=== PATIENT | female | born 1930 | race Caucasian/White ===

== ENCOUNTER 2017-10-02 10:45 | Emergency (ER) | payer MEDICARE ==
[~2017-10-02 10:45] MED LIST: ACE3 PO; AMI10 PO; AMIT-108 PO; ASPI81TA94 PO; ATOR40TA69 PO; CALC600T63 PO; HYDR12.558 PO; LOR5 PO; LOSA50TA72 PO; OMEP-218 PO; OMEP10CA38 PO; PRA20 PO; TRAM-420 PO; VIT1CAPS33 PO; ZOL5 PO; ZOLP-350 PO
[2017-10-02] MEDS ORDERED: MELO-205 PO (11:05)
[2017-10-02] MEDS ORDERED: HYDR-385 PO (11:05)
--- NOTE | 2017-10-02 11:58 | RADIOLOGY IMAGING REPORT ---
FACILITY: [facility] - [place] PATIENT NAME: Idalia Mera : 1930 MR: [id number] V: [id number] EXAM DATE: ORDERING PHYSICIAN: PAYAL STEPHENS TECHNOLOGIST: Location: [facility] Patient: Idalia Mera : 1930 Visit/Account:[id number] Date of Sevice: 10/02/2017 ANKLE 2 VIEW BILATERAL INDICATION: Bilateral ankle pain and swelling. COMPARISON: None available. FINDINGS: Right ankle: 3 views. Soft tissue swelling. No evidence of acute fracture, dislocation, or radiopaque foreign body. Mild osteopenia. Normal alignment. Mild midfoot osteoarthritis. Left ankle: 3 views. Soft tissue swelling. No evidence of acute fracture, dislocation, or radiopaque foreign body. Mild osteopenia. Normal joint spaces and alignment. IMPRESSION: 1. No acute osseous abnormality of the ankles. 2. Nonspecific bilateral soft tissue swelling. 3. 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 4. Mild osteopenia. Report Dictated By: Derek Hong MD at 10/02/2017 11:52 AM Report E-Signed By: Derek Hong MD at 10/02/2017 11:55 AM WSN:[id number]
--- NOTE | 2017-10-02 11:59 | ER Report ---
History and Physical Time Seen By MD: 11:00 Hx. of Stated Complaint: fall 09/20/17, evaluated in [place] and at [facility], today pt still has left ankle pain and pain medicine that has been prescribed is "upsetting my stomach", pt has been taking hydrocodone and meloxicam HPI/ROS CHIEF COMPLAINT: Bilateral ankle pain/injury HISTORY OF PRESENT ILLNESS: Patient is a 86-year-old female presents the ED with complaint of bilateral ankle injury that occurred 3 weeks ago. She states that she tripped and stumbled and fell onto her left side. She states that she has been seen at an emergency room and had some x-rays completed and also was seen at [facility] and had some MRIs of her back and also an x-ray of her left ankle completed. She does not believe they didn't x-ray of her right ankle. She states that she continues to have pain in both of her ankles but more so in her left. She has noted some swelling in her left ankle. She has been using a ankle brace and states that she has been elevating this when resting. REVIEW OF SYSTEMS: Constitutional: No fever, no chills. Cardiovascular: No chest pain, no palpitations. Respiratory: No cough, no shortness of breath. Musculoskeletal: See history of present illness. Skin: No rashes. Neurological: No headache. Allergies: Coded Allergies: tramadol (Verified Allergy, Intermediate, ITCHING, 10/02/17) Home Meds Reported Medications Meloxicam (MELOXICAM) 7.5 Mg Tablet, 15 MG PO QDAY 10/02/17 Hydrocodone Bit/Acetaminophen (HYDROCODON-ACETAMINOPHEN 5-325) 1 Each Tablet, 1 EACH PO Q6H, TAB 10/02/17 Vit C/Vit E/Lutein/Min/[place]-3 (OCUVITE SOFTGEL) 1 Each Capsule, 2 EACH PO, CAPSULE 06/05/14 Atorvastatin Calcium (ATORVASTATIN CALCIUM) 40 Mg Tablet, 1 TAB PO QDAY, TAB TAKE ONE TABLET BY MOUTH ONCE A DAY AT BED TIME 06/05/14 Losartan Potassium (LOSARTAN POTASSIUM) 50 Mg Tablet, 50 MG PO QDAY 06/05/14 Omeprazole (Prilosec) 10 Mg Capsule.dr, 10 MG PO QDAY Y, 0 Refills 11/07/09 Zolpidem Tartrate (Ambien) 10 Mg Tablet, 10 MG PO QHS, 0 Refills 11/07/09 Discontinued Scripts Acetaminophen/Codeine (TYLENOL #3 (OR EQUIV)) 1 Ea Tab, 1 EA PO Q4H Y for PAIN, #20 TAB 0 Refills Prov:SILAS CHAPMAN MD 06/01/15 Reviewed Nurses Notes: Yes Old Medical Records Reviewed: Yes Hx Smoking: No Smoking Status: Never Smoker Constitutional Vital Sign - Last 24 Hours 10/02/17 10:55 Temp 98.1 Pulse 70 Resp 16 B/P (MAP) 190/108 Pulse Ox 90 O2 Delivery Room Air Physical Exam General Appearance: The patient is alert, has no immediate need for airway protection and no signs of toxicity. She appears to be no acute distress. Respiratory: There are no retractions, lungs are clear to auscultation. Cardiovascular: Regular rate and rhythm. Skin: Warm and dry, no rashes. Musculoskeletal: Neck is supple non tender. There is left ankle and foot swelling appreciated. It appears to be 2+ and pitting. There is pain with palpation primarily on the lateral aspect of the left ankle. No ecchymosis is identified. PT and DP pulses are 2+ bilaterally with normal cap refill. Normal sensation. No swelling noted on the right ankle but some pain with palpation again on the lateral aspect. DIFFERENTIAL DIAGNOSIS: After history and physical exam differential diagnosis was considered for ankle injuries including sprain, contusion, fracture. Medical Decision Making EKG/Imaging Imaging Bilateral Ankle Xrays: IMPRESSION: 1. No acute osseous abnormality of the ankles. 2. Nonspecific bilateral soft tissue swelling. 3. 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 4. Mild osteopenia. Report Dictated By: Derek Hong MD at 10/02/2017 11:52 AM Report E-Signed By: Derek Hong MD at 10/02/2017 11:55 AM ED Course/Re-evaluation ED Course Will obtain bilateral ankle x-rays. 10/02/2017 12:05:56 pm - discussed normal x-rays with patient. She is to follow -up with orthopedics regarding her continued left ankle pain. She may continue to use the brace as needed. Advised to rest and elevate as well as take Tylenol for pain relief. Decision to Disposition Date: Oct 02, 2017 Decision to Disposition Time: 12:14 Depart Departure Latest Vital Signs Vital Signs Date Time Temp Pulse Resp B/P (MAP) Pulse Ox O2 Delivery O2 Flow Rate FiO2 10/02/17 10:55 98.1 70 16 190/108 90 Room Air Impression: Primary Impression: Left ankle sprain Condition: Improved Disposition: HOME OR SELF-CARE Referrals: PAULINE DELUNA DO (PCP) LYUDMILA ROD MD Patient Instructions: Ankle Sprain (ED) Additional Instructions: Rest, ice, elevate. Follow-up with orthopedic surgery in 2-3 days. If having any worsening or concerning symptoms may return to the emergency department. Problem Qualifiers Primary Impression: Left ankle sprain Encounter type: initial encounter Involved ligament of ankle: unspecified ligament Qualified Codes: S93.402A - Sprain of unspecified ligament of left ankle, initial encounter PAYAL STEPHENS PA-C Oct 02, 2017 11:59
[2017-10-02 12:35] VITALS: BP 198/100
== END 2017-10-02 12:35 | disposition home or self-care (01) ==
LOC: ER 11:03
DX: S93.402A Sprain of unspecified ligament of left ankle, initial encounter (principal); W01.0XXA Fall on same level from slipping, tripping and stumbling without subsequent striking against object, initial encounter
CPT/HCPCS: 99283

== ENCOUNTER → 2017-10-19 | Outpatient (CLI) | payer MEDICARE ==
[~2017-10-19] MED LIST changes: +HYDR-385 PO; +MELO-205 PO
--- NOTE | 2017-10-19 14:53 | RADIOLOGY IMAGING REPORT ---
FACILITY: [facility] - [place] PATIENT NAME: Idalia Mera : 1930 MR: [id number] V: [id number] EXAM DATE: ORDERING PHYSICIAN: PAULINE DELUNA TECHNOLOGIST: Location: [facility] [place] Patient: Idalia Mera : 1930 Visit/Account:[id number] Date of Sevice: 10/19/2017 Exam type: VENOUS DOPP LOWER BILAT EXTREM History: Left leg edema, right foot and toes feel tight Comparison: None. Findings: The lower extremity veins were imaged bilaterally including the common femoral veins show femoral vei ns popliteal veins posterior tibial vein peroneal veins and anterior tibial vein revealing no evidenc e of intraluminal thrombi. The veins were compressible and demonstrated augmentation incidentally no bella is calf edema bilaterally IMPRESSION: 1. No sonographic evidence DVT involving the lower extremity veins bilaterally Report Dictated By: Sahara Lees MD at 10/19/2017 2:48 PM Report E-Signed By: Sahara Lees MD at 10/19/2017 2:49 PM WSN:[id number]
== END ==
LOC: US 13:31
PROVIDERS: ATTEND Family Medicine
DX: R60.0 Localized edema (principal)
CPT/HCPCS: 93970

== ENCOUNTER → 2017-11-07 | Outpatient (CLI) | payer MEDICARE ==
--- NOTE | 2017-11-07 08:55 | EKG ---
FACILITY: [facility] - [place] PATIENT NAME: TYRONE RHODES : [id number] MR: [id number] V: [id number] EXAM DATE: ORDERING PHYSICIAN: LYUDMILA ROD TECHNOLOGIST: DESTINY Morales Reason : PREOP-KNEE Blood Pressure : / mmHG Vent. Rate : 073 BPM Atrial Rate : 073 BPM P-R Int : 152 ms QRS Dur : 082 ms QT Int : 380 ms P-R-T Axes : 051 011 054 degrees QTc Int : 418 ms Sinus rhythm Borderline left axis U waves are present Similar to previous EKGs Confirmed by CHATO OCHOA ([id number]) on 11/07/2017 10:17:32 AM Referred By: VIOLA Confirmed By:CHATO OCHOA
[2017-11-07 09:14] LABS: PLATELET COUNT, AUTOMATED 146 K/uL (150-450)
== END ==
LOC: LAB 08:22
PROVIDERS: ATTEND Orthopaedic Surgery
DX: Z01.812 Encounter for preprocedural laboratory examination (principal); Z01.810 Encounter for preprocedural cardiovascular examination; I10 Essential (primary) hypertension; H35.30 Unspecified macular degeneration; M19.90 Unspecified osteoarthritis, unspecified site; M17.12 Unilateral primary osteoarthritis, left knee
CPT/HCPCS: 36415; 81001; 82040; 82247; 82310; 82374; 82435; 82565; 82947; 84075; 84132; 84155; 84295; 84450; 84460; 84520; 85025; 93005

== ENCOUNTER → 2017-11-24 | Outpatient (CLI) | payer MEDICARE ==
[~2017-11-24] MED LIST changes: +ACET-1966 PO; +HYDR-2966 PO; +LISI-362 PO
== END ==
LOC: US 01:40
PROVIDERS: ATTEND Family Medicine
DX: I35.1 Nonrheumatic aortic (valve) insufficiency (principal); I50.30 Unspecified diastolic (congestive) heart failure
CPT/HCPCS: 93306

== ENCOUNTER 2017-12-02 10:25 | Inpatient (IN) | payer MEDICARE ==
[2017-11-30 12:52] VITALS: Ht 162.6 cm; Wt 71.0 kg
[~2017-12-02] VITALS: Ht 162.6 cm; Wt 71.0 kg
[~2017-12-02 10:25] MED LIST changes: -LOSA50TA72 PO; +LOSA50TA74 PO
[2017-12-02 10:30] VITALS: BP 105/53
[2017-12-02] MEDS ORDERED: MAGNESIUM CITRATE 300 ML BTL PO PRN (10:36)
[2017-12-02] MEDS ORDERED: BISACODYL 10 MG SUPP PR PRN (10:36)
--- NOTE | 2017-12-02 10:51 | Consultant Pharmacy Review ---
Antenna Specialist Review Medication Review Do All Mecications have a Diag: Yes Beers Criteria Medication 2014 Proton Pump Inhibitors: Pantoprazole (HX OF ULCERS) Other General Cautions Patient is 87 year old female, candidate for BEERs evaluation. Patient is taking oxycodone and percocet - this may increase risk for falls. Administer percocet at minimum doses for break thru pain. Lexicomp Interaction Analysis A = No known interaction C = Monitor therapy X = Avoid combination B = No action needed D = Consider therapy modification Drugs in this analysis: Aspirin; AtorvaSTATin; Bisacodyl; HydroCHLOROthiazide; Losartan; Magnesium Citrate; Milk of Magnesia [OTC]; OxyCODONE; Pantoprazole; Percocet * Drug-Drug Interactions D Bisacodyl Milk of Magnesia [OTC] (Antacids) C HydroCHLOROthiazide (Diuretics) OxyCODONE (Opioid Analgesics) C HydroCHLOROthiazide (Diuretics) Percocet (Opioid Analgesics) B Aspirin (Salicylates) Milk of Magnesia [OTC] (Antacids) Depends on Duration B OxyCODONE (Opioid Analgesics) Percocet (Acetaminophen) Pneumococcal Vaccine HX Pneumo Vac ([id number]): Yes (2006 - AGE 74) HX Pneumo Vac (Pneumovax): No (has not had, she is post knee-wait 2 months for vaccination-per doroteo coon) Notified? Notified?: No KEY MORSE Dec 02, 2017 10:51
--- NOTE | 2017-12-02 13:13 | Medical Nutrition Therapy ---
Nutrition Anthropometrics Height (Inches): 64 (from med/surg) Weight (Pounds): 145 (from med/surg) BMI: 26.8 Austin Nutrition Score: Austin Nutrition Risk Score: Dietary Referral Nutrition Risk Factors: Unplanned Loss >10lbs Nutrition Risk Comment: Poor appetite since fall in late August Physical Findings Physical Appearance: Overweight BMI 25-29 Skin Appearance Skin Appearance: Edema Edema Location Modifier: Edema Location: Type of Edema: Degree of Edema: Gastrointestinal Symptoms GI Symtoms: Tube Present: Bowel Sounds: Recent Bowel Pattern: Stool Characteristics: Nutritional Diagnosis Nutritional Risk Acuity 2: Unintended Wt Loss >5%/mo Nutritional Risk Acuity 3: OR & > 80 yrs Nutritional Risk Acuity 4: Good Appetite Past Medical History: Hx of Hyperlipidemia, HTN, and arthritis. Nutritional Acuity: 2-Moderate Nutrition Diagnosis: Increased Nutrient Needs Nutrition Etiology: Physiological Causes Nutrition Problem/Etiology/Sym: Increased nutrient needs as related to physiological causes, as evidenced by knee replacemnet and current increased nutrient needs to aid in healing. Energy Requirement: 1397 (mifflin, AF-1.3) Protein Requirement: 65 (1g/kg) Fluid Requirement: 1462 (1ml/kcal) Diet Type: Diet as Tolerated JAY/REG Nutrition Intervention: Cont diet as ordered, Encourage intake Drug: Diuretics Drug/Nutrition Recommendations: Check Serum K+ (25mg potassium dep) Diet Comment To RSA: Offer nutritional supplement Nutrition Monitoring & Eval RD Patient Assessment Time: [address] Assessment Type: RD Assessment Patient Nutrition Acuity: 2-Moderate Follow Up Date: Dec 06, 2017 Nutritional Comment: 11/01. Pt is an in house transfer, admitted for therapy and strengthening post knee replacement. Pt is OR > 80. Amission report noted unplanned weight loss of more than 10lbs, and that pt has had a smaller appetite after fall in August. Pt was 145lbs on med floor but had a stated weight of 156lbs. Currently receiving 25mg potassium depleting diuretic Q day. Potassium levels not available. Most recent lab indicates low HCT at 26.1. Pt is on JAY, and has been consuming 100% of meals. Pt is 64in, 145lbs, and has an overweight BMI of 25. Recommend 1397 kcals and 65g protein each day. Will cont to monitor pt and offer nutritional supplement. ASHLEIGHSHERRILL Dec 02, 2017 12:22
--- NOTE | 2017-12-02 16:39 | OT ECF NOTE ---
Type of Note: Initial Note Primary Medical Diagnosis: Left TKA Occupational Therapy Evaluation Date: 12-02-17 SUBJECTIVE: Prior Hospitalization: Pt. was on [facility] med/surg from 11/29/17 till 12/03/07. Prior Level of Function: I with all ADL's. Assistance with IADL's. Prior Living Status: Single level house Alone Community Services: Pt. wants to have HH care upon d/c. Home Accessibility: Stairs without rails All needs on one level Walk-in shower Equipment Owned: Front wheeled walker Medical Complications/Past Medical History: Please refer to chart for details. Psychosocial Support: Supportive children. Pain Scale (0-10): None stated at time of eval. OBJECTIVE: Strength: MMT: Right Left Shoulder Flexion [*] [*] Elbow Flexion [*] [*] Wrist Extension [*] [*] Hat And Cap Drying Room Attendant [*] [*] (5= normal, 4= good, 3= fair, 2= poor, 1= trace) ROM: Both upper extremities WFL Functional Transfer: Assistive Device: Front wheeled walker Gait belt Transfer Ability: Minimum assistance 1-person assist ADL: Upper body dressing: Assistive device: Upper body dressing ability: Lower body dressing: Assistive device: Lower body dressing ability: Max A Toileting: Assistive device: Grab rails Toileting ability: Maximum assistance Grooming/hygiene: N/T Assistive device: Grooming ability: Bathing:N/T Assistive device: Bathing ability: Standardized Assessment: Renea Index of Activities of Daily Living- Pt. scored 11/20 on this index during IE. ASSESSMENT: Pt. is a 87 year old female who underwent a Left TKA on 11/29/[address] Becker. Pt. resides alone in [place] and was independent with all ADL's prior to knee surgery. Pt. is currently requiring assistance to perform transfers and all ADL activities. Problem List/Current Limitations: Pain Decreased WB Decreased activity michelle Generalized weakness Memory deficits Short Term Goals: 1. Pt. to perform LB dressing activities with Min A. 2. Pt. to perform toileting activities with Mod I. 3. Pt. to perform showering activities with MIn A. 4. Pt. to improve Renea Index of ADL score by 2 points. 5. Pt. to perform g/h with I. Group Home Goals: Return home with HH care. Patient Goals: Return home with care. Rehabilitation Prognosis: Fair Barriers to Discharge: cognition, advanced age, pt. resides alone PLAN: The patient will benefit from skilled occupational therapy services 5 times per week for 2 weeks including: Ther ex ADL training Safety training Ther act IADL training Transfer training Adaptive equip training Bed mobility Thank you for this referral. If you have any questions, concerns, or comments about this report or plan, please contact me at . Dea Craig OTR/L Occupational Therapist DEBBI
[2017-12-02 17:09] VITALS: BP 109/55
[2017-12-02] MEDS: ATORVASTATIN 40 MG TAB PO SCH (20:16)
[2017-12-03 07:25] VITALS: BP 118/57
[2017-12-03] MEDS: HYDROCHLOROTHIAZIDE 25 MG TAB PO SCH (09:00)
[2017-12-03] MEDS: LOSARTAN POTASSIUM 50 MG TAB PO SCH (09:00)
[2017-12-03] MEDS: MAGNESIUM HYDROXIDE* 30ML UDCP PO PRN (09:06)
[2017-12-03] MEDS: PANTOPRAZOLE SOD 20 MG TABEC PO SCH (09:06)
[2017-12-03] MEDS: ASPIRIN 325 MG ENTERIC COATED PO SCH (09:06)
--- NOTE | 2017-12-03 14:35 | PT ECF NOTE ---
Type of Note: Initial Note Primary Medical Diagnosis: s/p L TKA 11/29/17 Physical Therapy Evaluation Date: 12/02/17 SUBJECTIVE: Prior Hospitalization: [facility] acute, see [place] Prior Level of Function: Independent with functional mobility and ADLs. Prior Living Status: Single level house, Alone, Assist by family, Son lives in [facility] Community Services: No known needs Home Accessibility: Stairs with rails on front entrance, 1 stair without rail through garage; All needs on one level, Walk-in shower Equipment Owned: Front wheeled walker Medical Complications/Past Medical History: see [place] Psychosocial Support: Son lives locally Pain Scale (0-10): Pt reports moderate pain OBJECTIVE: Strength: Right Lower Extremity: WFL Left Lower Extremity: not tested due to recent TKA ROM: (please note any abnormalities) limited on L Bed Mobility: Min A Assistive device: Bed rail, Head of bed elevated Transfers: Minimum assistance/ Moderate assistance Assistive Device: Front wheeled walker Gait: Minimum assistance, CGA x20' with 2 seated rest breaks Assistive device: Front wheeled walker ASSESSMENT: Pt presents with decreased independence with functional mobility s/p L TKA. Pt will benefit from skilled PT for strengthening, ROM, and functional mobility training in order to return to prior level of function living alone independently. Problem List/Current Limitations: Pain, Decreased activity tolerance, Decreased strength, Decreased ROM, Decreased balance, Generalized weakness Short Term Goals: 1. Mod I bed mobility. 2. Mod I transfers. 3. Mod I gait x 150' with RW. 4. Ascend/descend 1 step with RW or 3 steps with rail. Skilled Nursing Goals: Return to living independently. Patient Goals: Returning home Rehabilitation Prognosis: Good Barriers for Discharge: none identified at this time. PLAN: The patient will benefit from skilled physical therapy services 5 times per week for 2 weeks including: Therapeutic Exercise, Therapeutic Activities, Transfer Training, Gait Training, Stair Training, Manual Therapy, ADL's, Safety Training, Neuromuscular Re-educ., Pt/Caregiver Training, Bed Mobility Thank you for this referral. If you have any questions, concerns, or comments about this report or plan, please contact me at . Ayanna Rod, PT, DPT MTDD
[2017-12-03 16:15] VITALS: BP 100/67
[2017-12-03] MEDS: BETA-CAROTENE(A) & E/MIN TAB PO SCH (21:10)
[2017-12-03] MEDS: ATORVASTATIN 40 MG TAB PO SCH (21:10)
[2017-12-04 07:40] VITALS: BP 121/64
[2017-12-04] MEDS: LOSARTAN POTASSIUM 50 MG TAB PO SCH (08:51)
[2017-12-04] MEDS: HYDROCHLOROTHIAZIDE 25 MG TAB PO SCH (08:51)
[2017-12-04] MEDS: ASPIRIN 325 MG ENTERIC COATED PO SCH (08:51)
[2017-12-04] MEDS: PANTOPRAZOLE SOD 20 MG TABEC PO SCH (08:51)
[2017-12-04] MEDS: BETA-CAROTENE(A) & E/MIN TAB PO SCH ×2 (08:51→20:20)
[2017-12-04 17:30] VITALS: BP 108/66
[2017-12-04] MEDS: ATORVASTATIN 40 MG TAB PO SCH (20:20)
[2017-12-04] MEDS: NYSTATIN 100,000 U/GM PWD 15GM TP SCH (20:20)
[2017-12-05 07:42] VITALS: BP 142/70
[2017-12-05] MEDS: BETA-CAROTENE(A) & E/MIN TAB PO SCH ×2 (08:49→21:35)
[2017-12-05] MEDS: ASPIRIN 325 MG ENTERIC COATED PO SCH (08:49)
[2017-12-05] MEDS: PANTOPRAZOLE SOD 20 MG TABEC PO SCH (08:49)
[2017-12-05] MEDS: LOSARTAN POTASSIUM 50 MG TAB PO SCH (08:50)
[2017-12-05] MEDS: NYSTATIN 100,000 U/GM PWD 15GM TP SCH ×2 (08:50→21:36)
[2017-12-05] MEDS: HYDROCHLOROTHIAZIDE 25 MG TAB PO SCH (08:50)
[2017-12-05] MEDS: MAGNESIUM HYDROXIDE* 30ML UDCP PO PRN ×2 (13:03→21:36)
--- NOTE | 2017-12-05 13:24 | Medical Nutrition Therapy ---
Nutrition Anthropometrics Height (Inches): 64 Height (Calculated Centimeters: 137.897423 Weight (Pounds): 151 Weight (Calculated Kilograms): 68.492 BMI: 36.4 Austin Nutrition Score: Adequate Austin Nutrition Risk Score: 16 Dietary Referral Nutrition Risk Factors: Unplanned Loss >10lbs Nutrition Risk Comment: Poor appetite since fall in late August Physical Findings Physical Appearance: Obese BMI 30-39 Skin Appearance Skin Appearance: Edema Edema Location Modifier: Left Edema Location: Leg Type of Edema: Degree of Edema: Gastrointestinal Symptoms GI Symtoms: Constipation Tube Present: Bowel Sounds: Recent Bowel Pattern: Constipated Stool Characteristics: Nutritional Diagnosis Nutritional Risk Acuity 2: Unintended Wt Loss >5%/mo Nutritional Risk Acuity 3: OR & > 80 yrs Nutritional Risk Acuity 4: Good Appetite Past Medical History: Hx of Hyperlipidemia, HTN, and arthritis. Nutritional Acuity: 2-Moderate Nutrition Diagnosis: Increased Nutrient Needs Nutrition Etiology: Physiological Causes Nutrition Problem/Etiology/Sym: Increased nutrient needs as related to physiological causes, as evidenced by knee replacemnet and current increased nutrient needs to aid in healing. Energy Requirement: 1397 (mifflin, AF-1.3) Protein Requirement: 65 (1g/kg) Fluid Requirement: 1462 (1ml/kcal) Diet Type: Diet as Tolerated JAY/REG Nutrition Intervention: Cont diet as ordered, Encourage intake Drug: Diuretics Drug/Nutrition Recommendations: Check Serum K+ (25mg potassium dep) Diet Comment To RSA: Offer nutritional supplement Nutrition Monitoring & Eval RD Patient Assessment Time: [address] Assessment Type: RD Re-Assessment Patient Nutrition Acuity: 2-Moderate Follow Up Date: Dec 13, 2017 Nutritional Comment: 12/02. Pt is an in house transfer, admitted for therapy and strengthening post knee replacement. Pt is OR > 80. Amission report noted unplanned weight loss of more than 10lbs, and that pt has had a smaller appetite after fall in August. Pt was 145lbs on med floor but had a stated weight of 156lbs. Currently receiving 25mg potassium depleting diuretic Q day. Potassium levels not available. Most recent lab indicates low HCT at 26.1. Pt is on JAY, and has been consuming 100% of meals. Pt is 64in, 145lbs, and has an overweight BMI of 25. Recommend 1397 kcals and 65g protein each day. Will cont to monitor pt and offer nutritional supplement. MR 9/. Pt was weighed by bed scale on 12/02 which indicated pt was 151lbs. Pt has a BMI of 36.4. Pt cont on JAY and has been consuming 75% of meals. Pt cont to receive diuretic, no potassium value available. Will cont to encourage intake. MR SOTELOSHERRILL Dec 05, 2017 09:20
[2017-12-05 15:45] VITALS: BP 118/60
[2017-12-05] MEDS: ATORVASTATIN 40 MG TAB PO SCH (21:35)
[2017-12-06 08:58] VITALS: BP 136/69
[2017-12-06] MEDS: HYDROCHLOROTHIAZIDE 25 MG TAB PO SCH (09:00)
[2017-12-06] MEDS: LOSARTAN POTASSIUM 50 MG TAB PO SCH (09:00)
[2017-12-06] MEDS: ASPIRIN 325 MG ENTERIC COATED PO SCH (09:07)
[2017-12-06] MEDS: PANTOPRAZOLE SOD 20 MG TABEC PO SCH (09:07)
[2017-12-06] MEDS: BETA-CAROTENE(A) & E/MIN TAB PO SCH ×2 (09:07→20:29)
[2017-12-06] MEDS: NYSTATIN 100,000 U/GM PWD 15GM TP SCH ×2 (09:07→20:29)
[2017-12-06 17:00] VITALS: BP 130/73
[2017-12-06] MEDS: ATORVASTATIN 40 MG TAB PO SCH (20:29)
[2017-12-07 07:45] VITALS: BP 147/84
[2017-12-07] MEDS: HYDROCHLOROTHIAZIDE 25 MG TAB PO SCH (09:00)
[2017-12-07] MEDS: LOSARTAN POTASSIUM 50 MG TAB PO SCH (09:00)
[2017-12-07] MEDS: NYSTATIN 100,000 U/GM PWD 15GM TP SCH ×2 (09:35→20:59)
[2017-12-07] MEDS: ASPIRIN 325 MG ENTERIC COATED PO SCH (09:35)
[2017-12-07] MEDS: BETA-CAROTENE(A) & E/MIN TAB PO SCH ×2 (09:36→21:00)
[2017-12-07] MEDS: PANTOPRAZOLE SOD 20 MG TABEC PO SCH (09:36)
[2017-12-07] MEDS ORDERED: OMEP20CA68 PO (13:38)
--- NOTE | 2017-12-07 14:02 | Hospitalist Progress Note ---
Subjective Progress Notes Subjective She has no complaints. She continues to work with physical therapy. Patient Complains of: Cardiovascular: No: Chest Pain Respiratory: No: Shortness of Breath Physical Exam Vital Signs Date Time Temp Pulse Resp B/P (MAP) Pulse Ox O2 Delivery O2 Flow Rate FiO2 12/07/17 10:59 93 Room Air 12/07/17 07:45 98.5 82 147/84 (105) 12/06/17 17:00 20 95.0 Intake and Output 12/07/17 06:59 Intake Total 745 ml Balance 745 ml Intake Oral 745 ml # Voids 9 # Bowel Movements 4 General Appearance: Alert, Awake, No Acute Distress, Afebrile Neuro: No Gross deficits Cardiovascular: Regular Rate and Rhythm Respiratory: No Respiratory Distress, Clear to Auscultation GI: Soft and Non-Tender Psych: Alert & Oriented X3, Appropriate Mood & Affect Assessment and Plan Problems: (1) Arthritis Status: Chronic Assessment & Plan: Status post L TKA. Doing well. She was placed on Aspirin for DVT prophylaxis. (2) HTN (hypertension) Status: Chronic Assessment & Plan: She is on chronic treatment with Losartan. This was restar bella with hold parameters. (3) HLD (hyperlipidemia) Status: Chronic Assessment & Plan: She is on chronic treatment with Atorvastatin. Problem Qualifiers (1) HTN (hypertension): Hypertension type: essential hypertension Qualified Codes: I10 - Essential (primary) hypertension VIVIENNE SNATAMARIA Dec 07, 2017 14:02
[2017-12-07 15:20] VITALS: BP 137/76
[2017-12-07] MEDS: ATORVASTATIN 40 MG TAB PO SCH (21:00)
[2017-12-08 07:49] VITALS: BP 144/73
[2017-12-08] MEDS: ASPIRIN 325 MG ENTERIC COATED PO SCH (08:59)
[2017-12-08] MEDS: PANTOPRAZOLE SOD 20 MG TABEC PO SCH (08:59)
[2017-12-08] MEDS: NYSTATIN 100,000 U/GM PWD 15GM TP SCH ×2 (08:59→20:36)
[2017-12-08] MEDS: LOSARTAN POTASSIUM 50 MG TAB PO SCH (08:59)
[2017-12-08] MEDS: BETA-CAROTENE(A) & E/MIN TAB PO SCH ×2 (08:59→20:36)
[2017-12-08 20:20] VITALS: BP 127/64
[2017-12-08] MEDS: ATORVASTATIN 40 MG TAB PO SCH (20:36)
[2017-12-09 07:31] VITALS: BP 153/59
[2017-12-09] MEDS: BETA-CAROTENE(A) & E/MIN TAB PO SCH ×2 (09:12→20:58)
[2017-12-09] MEDS: PANTOPRAZOLE SOD 20 MG TABEC PO SCH (09:12)
[2017-12-09] MEDS: LOSARTAN POTASSIUM 50 MG TAB PO SCH (09:12)
[2017-12-09] MEDS: NYSTATIN 100,000 U/GM PWD 15GM TP SCH ×2 (09:12→20:59)
[2017-12-09] MEDS: ASPIRIN 325 MG ENTERIC COATED PO SCH (09:12)
[2017-12-09 17:20] VITALS: BP 139/84
[2017-12-09] MEDS: ATORVASTATIN 40 MG TAB PO SCH (20:58)
[2017-12-10 08:38] VITALS: BP 126/62
[2017-12-10] MEDS: LOSARTAN POTASSIUM 50 MG TAB PO SCH (09:00)
[2017-12-10] MEDS: NYSTATIN 100,000 U/GM PWD 15GM TP SCH ×2 (09:00→21:23)
[2017-12-10] MEDS: BETA-CAROTENE(A) & E/MIN TAB PO SCH ×2 (09:36→21:22)
[2017-12-10] MEDS: ASPIRIN 325 MG ENTERIC COATED PO SCH (09:36)
[2017-12-10] MEDS: PANTOPRAZOLE SOD 20 MG TABEC PO SCH (09:36)
[2017-12-10] MEDS: MAGNESIUM HYDROXIDE* 30ML UDCP PO PRN (13:42)
[2017-12-10 14:50] VITALS: BP 130/79
[2017-12-10] MEDS: ATORVASTATIN 40 MG TAB PO SCH (21:23)
[2017-12-11 07:15] VITALS: BP 138/74
[2017-12-11] MEDS: BETA-CAROTENE(A) & E/MIN TAB PO SCH ×2 (08:54→21:32)
[2017-12-11] MEDS: PANTOPRAZOLE SOD 20 MG TABEC PO SCH (08:54)
[2017-12-11] MEDS: NYSTATIN 100,000 U/GM PWD 15GM TP SCH ×2 (08:54→21:32)
[2017-12-11] MEDS: LOSARTAN POTASSIUM 50 MG TAB PO SCH (08:54)
[2017-12-11] MEDS: ASPIRIN 325 MG ENTERIC COATED PO SCH (08:54)
[2017-12-11 16:15] VITALS: BP 106/60
[2017-12-11] MEDS: ATORVASTATIN 40 MG TAB PO SCH (21:32)
[2017-12-12 08:11] VITALS: BP 130/67
[2017-12-12] MEDS: PANTOPRAZOLE SOD 20 MG TABEC PO SCH (08:36)
[2017-12-12] MEDS: BETA-CAROTENE(A) & E/MIN TAB PO SCH ×2 (08:36→20:15)
[2017-12-12] MEDS: ASPIRIN 325 MG ENTERIC COATED PO SCH (08:37)
[2017-12-12] MEDS: LOSARTAN POTASSIUM 50 MG TAB PO SCH (08:37)
[2017-12-12] MEDS: NYSTATIN 100,000 U/GM PWD 15GM TP SCH ×3 (08:38→20:17)
--- NOTE | 2017-12-12 13:05 | Medical Nutrition Therapy ---
Nutrition Anthropometrics Height (Inches): 64 Height (Calculated Centimeters: 162.408343 Weight (Pounds): 151 Weight (Calculated Kilograms): 68.492 BMI: 25.9 Austin Nutrition Score: Adequate Austin Nutrition Risk Score: 18 Dietary Referral Nutrition Risk Factors: Unplanned Loss >10lbs Nutrition Risk Comment: Poor appetite since fall in late August Physical Findings Physical Appearance: Overweight BMI 25-29 Skin Appearance Skin Appearance: Edema Edema Location Modifier: Left Edema Location: Leg Type of Edema: Degree of Edema: Gastrointestinal Symptoms GI Symtoms: Constipation Tube Present: Bowel Sounds: Recent Bowel Pattern: Constipated Stool Characteristics: Nutritional Diagnosis Nutritional Risk Acuity 2: Unintended Wt Loss >5%/mo Nutritional Risk Acuity 3: OR & > 80 yrs Nutritional Risk Acuity 4: Good Appetite Past Medical History: Hx of Hyperlipidemia, HTN, and arthritis. Nutritional Acuity: 2-Moderate Nutrition Diagnosis: Increased Nutrient Needs Nutrition Etiology: Physiological Causes Nutrition Problem/Etiology/Sym: Increased nutrient needs as related to physiological causes, as evidenced by knee replacemnet and current increased nutrient needs to aid in healing. Energy Requirement: 1397 (mifflin, AF-1.3) Protein Requirement: 65 (1g/kg) Fluid Requirement: 1462 (1ml/kcal) Diet Type: Diet as Tolerated JAY/REG Nutrition Intervention: Cont diet as ordered, Encourage intake Drug: Diuretics Drug/Nutrition Recommendations: Check Serum K+ (25mg potassium dep) Diet Comment To RSA: Offer nutritional supplement Nutrition Monitoring & Eval RD Patient Assessment Time: [address] Assessment Type: RD Re-Assessment Patient Nutrition Acuity: 2-Moderate Follow Up Date: Dec 20, 2017 Nutritional Comment: 12/02. Pt is an in house transfer, admitted for therapy and strengthening post knee replacement. Pt is OR > 80. Amission report noted unplanned weight loss of more than 10lbs, and that pt has had a smaller appetite after fall in August. Pt was 145lbs on med floor but had a stated weight of 156lbs. Currently receiving 25mg potassium depleting diuretic Q day. Potassium levels not available. Most recent lab indicates low HCT at 26.1. Pt is on JAY, and has been consuming 100% of meals. Pt is 64in, 145lbs, and has an overweight BMI of 25. Recommend 1397 kcals and 65g protein each day. Will cont to monitor pt and offer nutritional supplement. MR 9/. Pt was weighed by bed scale on 12/02 which indicated pt was 151lbs. Pt has a BMI of 36.4. Pt cont on JAY and has been consuming 75% of meals. Pt cont to receive diuretic, no potassium value available. Will cont to encourage intake. MR 12/12. Pt doing well, working with PT. Pt no longer on diuretic. Cont on JAY, consuming on average 75-100% of meals. Pt is also drinking ensure/ensure clear for snacks. No weight change to report. Will cont to monitor intake and weight. SHERRILL BRADLEY Dec 12, 2017 08:57
[2017-12-12] MEDS: MAGNESIUM HYDROXIDE* 30ML UDCP PO PRN (13:37)
[2017-12-12 15:35] VITALS: BP 113/56
[2017-12-12] MEDS: ATORVASTATIN 40 MG TAB PO SCH (20:16)
[2017-12-13 08:00] VITALS: BP 150/62
[2017-12-13] MEDS: ASPIRIN 325 MG ENTERIC COATED PO SCH (09:02)
[2017-12-13] MEDS: LOSARTAN POTASSIUM 50 MG TAB PO SCH (09:02)
[2017-12-13] MEDS: BETA-CAROTENE(A) & E/MIN TAB PO SCH ×2 (09:02→20:28)
[2017-12-13] MEDS: PANTOPRAZOLE SOD 20 MG TABEC PO SCH (09:02)
[2017-12-13 17:50] VITALS: BP 155/80
[2017-12-13] MEDS: ACETAMINOPHEN 325 MG TAB PO PRN (18:30)
[2017-12-13] MEDS: ATORVASTATIN 40 MG TAB PO SCH (20:28)
[2017-12-14] MEDS: ACETAMINOPHEN 325 MG TAB PO PRN ×3 (00:42→20:12)
[2017-12-14 08:00] VITALS: BP 126/68
[2017-12-14] MEDS: ASPIRIN 325 MG ENTERIC COATED PO SCH (08:35)
[2017-12-14] MEDS: PANTOPRAZOLE SOD 20 MG TABEC PO SCH (08:35)
[2017-12-14] MEDS: LOSARTAN POTASSIUM 50 MG TAB PO SCH (08:35)
[2017-12-14] MEDS: BETA-CAROTENE(A) & E/MIN TAB PO SCH ×2 (08:35→20:11)
[2017-12-14] MEDS: NYSTATIN 100,000 U/GM PWD 15GM TP SCH ×2 (09:00→20:12)
[2017-12-14] MEDS ORDERED: ASPI-764 PO (14:30)
--- NOTE | 2017-12-14 14:32 | Hospitalist Progress Note ---
Subjective Progress Notes Subjective She has no complaints. She states she would like to go home tomorrow. She has had no acute events. Patient Complains of: Cardiovascular: No: Chest Pain Respiratory: No: Shortness of Breath Physical Exam Vital Signs Date Time Temp Pulse Resp B/P (MAP) Pulse Ox O2 Delivery O2 Flow Rate FiO2 12/14/17 10:27 91 Room Air 12/14/17 08:00 98.3 74 16 126/68 (87) 12/10/17 14:50 89.0 Intake and Output 12/14/17 07:00 Intake Total 440 ml Balance 440 ml Intake Oral 440 ml # Voids 11 # Bowel Movements 3 General Appearance: Alert, Awake, No Acute Distress, Afebrile Neuro: No Gross deficits Cardiovascular: Regular Rate and Rhythm Respiratory: No Respiratory Distress, Clear to Auscultation GI: Soft and Non-Tender Extremities: Warm, Perfused; No Edema Psych: Alert & Oriented X3, Appropriate Mood & Affect Assessment and Plan Problems: (1) Arthritis Status: Chronic Assessment & Plan: Status post L TKA. Doing well. She was placed on Aspirin for DVT prophylaxis. (2) HTN (hypertension) Status: Chronic Assessment & Plan: She is on chronic treatment with Losartan. This was restarted with hold parameters. (3) HLD (hyperlipidemia) Status: Chronic Assessment & Plan: She is on chronic treatment with Atorvastatin. Problem Qualifiers (1) HTN (hypertension): Hypertension type: essential hypertension Qualified Codes: I10 - Essential (primary) hypertension VIVIENNE SANTAMARIA Dec 14, 2017 14:32
[2017-12-14 14:50] VITALS: BP 147/63
[2017-12-14] MEDS: ATORVASTATIN 40 MG TAB PO SCH (20:12)
[2017-12-15] MEDS: ACETAMINOPHEN 325 MG TAB PO PRN ×2 (02:27→08:07)
[2017-12-15 08:05] VITALS: BP 157/72
[2017-12-15] MEDS: PANTOPRAZOLE SOD 20 MG TABEC PO SCH (08:50)
[2017-12-15] MEDS: ASPIRIN 325 MG ENTERIC COATED PO SCH (08:50)
[2017-12-15] MEDS: LOSARTAN POTASSIUM 50 MG TAB PO SCH (08:50)
[2017-12-15] MEDS: BETA-CAROTENE(A) & E/MIN TAB PO SCH (08:50)
[2017-12-15] MEDS: NYSTATIN 100,000 U/GM PWD 15GM TP SCH (08:51)
--- NOTE | 2017-12-15 13:31 | OT ECF NOTE ---
Type of Note: Discharge Note Primary Medical Diagnosis: Left TKA Occupational Therapy Evaluation Date: 12-02-17 SUBJECTIVE: Prior Hospitalization: Pt. was on H med/surg from 11/29/17 till 12/03/07. Prior Level of Function: I with all ADL's. Assistance with IADL's. Prior Living Status: Single level house Alone Community Services: Pt. wants to have care upon d/c. Home Accessibility: Stairs without rails All needs on one level Walk-in shower Equipment Owned: Front wheeled walker, Shower chair, Discharging Machine Operator, Sock aid Medical Complications/Past Medical History: Please refer to chart for details. Psychosocial Support: Supportive children. Pain Scale (0-10): None stated at time of discharge OBJECTIVE: Strength: MMT: Right Left Shoulder Flexion [*] [*] Elbow Flexion [*] [*] Wrist Extension [*] [*] Middle School Pe Teacher [*] [*] (5= normal, 4= good, 3= fair, 2= poor, 1= trace) ROM: Both upper extremities WFL Functional Transfer: Assistive Device: Front wheeled walker Transfer Ability: Modified Independent ADL: Upper body dressing: Assistive device: Upper body dressing ability: Independent Lower body dressing: Assistive device: Sock aid/lab technician Lower body dressing ability: Modified Independent with exception of bella hose Toileting: Assistive device: Grab rails Toileting ability: Modified Independent Grooming/hygiene: Assistive device: Standing Grooming ability: Modified Independent Bathing:N/T Assistive device: Shower chair Bathing ability: Minimum assistance per pt request Standardized Assessment: Renea Index of Activities of Daily Living- Pt. scored 11/20 on this index during IE. upon discharge. ASSESSMENT: Pt. is a 87 year old female who underwent a Left TKA on 11/29/[address] Becker. Pt. resides alone in [place] and was independent with all ADL's prior to knee surgery. Pt. has met all skilled OT goals. Problem List/Current Limitations: Pain Decreased WB Decreased activity michelle Generalized weakness Memory deficits Short Term Goals: 1. Pt. to perform LB dressing activities with Min A. GOAL MET 2. Pt. to perform toileting activities with Mod I. GOAL MET 3. Pt. to perform showering activities with MIn A.GOAL MET 4. Pt. to improve Renea Index of ADL score by 2 points.GOAL MET 5. Pt. to perform g/h with I. GOAL MET [employer] Goals: Return home with HH care. Patient Goals: Return home with HH care, assist from sons, and 18/10 private caregiver assist Rehabilitation Prognosis: Fair Barriers to Discharge: cognition, advanced age, pt. resides alone PLAN: Return home with care, assist from sons, and 18/10 private caregiver assist Thank you for this referral. If you have any questions, concerns, or comments about this report or plan, please contact me at . Daphne Peña MS, OTR/L Occupational Therapist DEBBI
--- NOTE | 2017-12-16 19:38 | PT ECF NOTE ---
Type of Note: Discharge Note Primary Medical Diagnosis: s/p L) TKA 11/29/17 Physical Therapy Evaluation Date: 12/02/17 SUBJECTIVE: Prior Hospitalization: H acute, see [facility] Prior Level of Function: Independent with functional mobility and ADLs. Prior Living Status: Single level house, Alone, Assist by family, Son lives in [facility] Community Services: No known needs Home Accessibility: Stairs with rails on front entrance, 1 stair without rail through garage; All needs on one level, Walk-in shower Equipment Owned: Front wheeled walker Medical Complications/Past Medical History: see [employer] Psychosocial Support: Son lives locally Pain Scale (0-10): Pt reports moderate pain OBJECTIVE: Strength: Right Lower Extremity: WFL Left Lower Extremity: 4/5 ROM: (please note any abnormalities) limited on L Bed Mobility: modified indep Assistive device: Transfers: Modified inep Assistive Device: Front wheeled walker Gait: Functional household distances Assistive device: Front wheeled walker ASSESSMENT: Pt has demonstrated improvement in functional mobility and safety with balance skills. Pt would benefit from further rehab to address specific knee ROM and strengthening in the home environment, as community distances continue to create more taxing effort. Short Term Goals: (Met) 1. Mod I bed mobility. 2. Mod I transfers. 3. Mod I gait x 150' with RW. 4. Ascend/descend 1 step with RW or 3 steps with rail. Half-Way Goals: Return to living independently. Patient Goals: Returning home Rehabilitation Prognosis: Good Barriers for Discharge: none identified at this time. PLAN: Pt set up with [facility] for further rehab Thank you for this referral. If you have any questions, concerns, or comments about this report or plan, please contact me at . H. Candida Velez, PT, MPT, OMS MTDD
--- NOTE | 2017-12-27 21:17 | DISCHARGE SUMMARY ---
DATE OF ADMISSION: December 02, 2017 DATE OF DISCHARGE: December 15, 2017 ADMITTING DIAGNOSIS Weakness secondarily due to a total knee arthroplasty. ADMITTING PROVIDERS Reynold Becker MD, and then followed up by Stephanie Boggs MD DISPOSITION To home with home health. CURRENT MEDICATIONS Resume outpatient medications and also to start the pain medication and blood thinner as prescribed. CONSULTATIONS PT INDICATIONS AND HISTORY This patient is an 87-year-old female who underwent a total knee arthroplasty on November 29, 2017. She continued to have weakness and problems with ambulating in the hospital, and so therefore, she was transferred to the extended care facility where she was to receive longer term care and get her pain controlled and also her weakness and strength better in order to independently ambulate. DESCRIPTION OF EXTENDED CARE FACILITY COURSE The patient was admitted on December 02, 2017. Over the two weeks, she did gain a significant amount of strength associated with her knee, but it was a very slow process. She did have some pain and irritation associated with it, but we were able to wean her back on some of the pain meds that she was requiring for hospital course, and then she was available to be discharged with home health on December 15, 2017, so we discharged her without major difficulties. DEBBI
== END 2017-12-15 11:00 | disposition home health service (06) | DRG 561 ==
LOC: ECF 10:25
PROVIDERS: ADMIT Orthopaedic Surgery; ATTEND Orthopaedic Surgery
DX: Z47.1 Aftercare following joint replacement surgery (principal); R53.1 Weakness; G89.18 Other acute postprocedural pain; I10 Essential (primary) hypertension; Z96.652 Presence of left artificial knee joint; E78.5 Hyperlipidemia, unspecified
CPT/HCPCS: 97161; 97165

== ENCOUNTER → 2018-03-14 | Outpatient (CLI) | payer MEDICARE ==
[2017-11-30 12:52] VITALS: BMI 26.8
[~2018-03-14] MED LIST changes: +ASPI-764 PO; -LOSA50TA74 PO; +LOSA50TA80 PO; +OMEP20CA68 PO
--- NOTE | 2018-03-14 16:42 | RADIOLOGY IMAGING REPORT ---
FACILITY: [facility] [place] PATIENT NAME: Idalia Mera : 1930 MR: [id number] V: [id number] EXAM DATE: ORDERING PHYSICIAN: PAULINE DELNUA TECHNOLOGIST: Location: [facility] [place] Patient: Idalia Mera : 1930 Visit/Account:[id number] Date of Sevice: 03/14/2018 VENOUS DOPP LOW RIGHT EXTREMIT HISTORY: Left total knee arthroplasty. ADDITIONAL HISTORY: None. COMPARISON: None. FINDINGS: The right common femoral, femoral, and popliteal veins are fully compressible and patent. The paired veins of the calf are normal. Contralateral left common femoral vein is normal. IMPRESSION: No evidence of right lower extremity DVT. Report Dictated By: Darnell Garber at 03/14/2018 4:36 PM Report E-Signed By: Darnell Garber at 03/14/2018 4:38 PM WSN:[id number]
== END ==
LOC: US 10:41
PROVIDERS: ATTEND Family Medicine
DX: R60.9 Edema, unspecified (principal)